=== PATIENT | male | born 1965 | race American Indian/Alaskan Native ===

== ENCOUNTER 2016-10-29 20:00 | Emergency (ER) | payer SELFPAY ==
[2016-10-29 22:06] LABS: Basophils % (Auto) 1.5 % (0.0-1.8); Eosinophils % (Auto) 2.3 % (0.0-4.3); Hematocrit 38.5 % (35.5-45.6); Hemoglobin 12.8 gm/dl (11.8-15.2); Mean Corpuscular HGB Conc 33 % (32-34); Mean Corpuscular Hemoglobin 27 pg (28-32); Mean Corpuscular Volume 82 fl (84-94); Platelet Count 320 K/mm3 (140-440); Red Cell Distribution Width 15.7 % (13.2-15.2); White Blood Count 6.3 K/mm3 (4.5-11.0)
[2016-10-29 22:16] LABS: Anion Gap 15 mmol/L; BUN/Creatinine Ratio 14.28; Blood Urea Nitrogen 10 mg/dL (9-20); Calcium 8.5 mg/dL (8.4-10.2); Carbon Dioxide 26 mmol/L (22-30); Chloride 103.5 mmol/L (98-107); Glucose 94 mg/dL (75-100); Potassium 3.9 mmol/L (3.6-5.0); Sodium 141 mmol/L (137-145)
[2016-10-29 22:31] LABS: INR 0.98 (0.87-1.13)
[2016-10-29 22:32] LABS: Partial Thromboplastin Time 29.6 Sec. (24.2-36.6)
--- NOTE | 2016-10-30 00:27 | Emergency Department Report ---
ED General Adult HPI - General Chief complaint: Urogenital-Male Stated complaint: LEG SWELLING Time Seen by Provider: 10/30/16 00:12 Source: patient Mode of arrival: Ambulatory Limitations: No Limitations - History of Present Illness Initial comments: This is a 51-year-old male. He is previously unknown to me. His primary care doctor is Dr. Mistry. The patient presents to the ER complaining of bilateral lower extremity swelling. Patient reports that his legs have been swelling intermittently for the past 6 weeks. He reports that the swelling decreases when he lays flat, and increases when sitting up. There is no chest pain, shortness of breath or abdominal pain. He denies unintentional weight gain. He reports that he now has intermittent testicular swelling for the past week. He is able to urinate but it is difficult. There is no hematemesis, bright red blood per rectum, irritative urinary symptoms. -: Gradual Location: genitals, left, right, lower extremity Radiation: non-radiation Consistency: intermittent Improves with: other (symptoms improved when the patient is sleeping and laying supine.) Worsens with: other (they worsen when the patient is standing upright) Associated Symptoms: denies: shortness of breath - Related Data Previous Rx's Medication Instructions Recorded Last Taken Type Furosemide [Lasix] 20 mg PO QDAY #14 tablet 10/30/16 Unknown Rx Allergies Allergy/AdvReac Type Severity Reaction Status Date / Time No Known Allergies Allergy Unverified 10/29/16 21:24 ED Review of Systems ROS: Stated complaint: LEG SWELLING Other details as noted in HPI Constitutional: denies: fever, malaise Eyes: denies: vision change ENT: denies: epistaxis Respiratory: denies: shortness of breath Cardiovascular: edema. denies: chest pain Gastrointestinal: denies: abdominal pain Genitourinary: denies: dysuria, testicular pain Musculoskeletal: joint swelling Skin: denies: lesions Neurological: denies: weakness Psychiatric: denies: anxiety ED Past Medical Hx - Past Medical History Previous Medical History?: No - Surgical History Past Surgical History?: No - Social History Smoking Status: Never Smoker Substance Use Type: Alcohol - Medications Home Medications: Home Medications Medication Instructions Recorded Confirmed Last Taken Type Furosemide [Lasix] 20 mg PO QDAY #14 tablet 10/30/16 Unknown Rx ED Physical Exam - General Limitations: No Limitations General appearance: alert, in no apparent distress - Head Head exam: Present: atraumatic, normocephalic - Eye Eye exam: Present: normal appearance, EOMI. Absent: nystagmus - ENT ENT exam: Present: normal exam, normal orophraynx, mucous membranes moist, normal external ear exam - Neck Neck exam: Present: normal inspection, full ROM. Absent: tenderness, meningismus - Respiratory Respiratory exam: Present: normal lung sounds bilaterally. Absent: respiratory distress, wheezes, rales, rhonchi, stridor, chest wall tenderness, accessory muscle use, decreased breath sounds, prolonged expiratory - Cardiovascular Cardiovascular Exam: Present: regular rate, normal rhythm, normal heart sounds. Absent: bradycardia, tachycardia, irregular rhythm, systolic murmur, diastolic murmur, rubs, gallop - GI/Abdominal GI/Abdominal exam: Present: soft, normal bowel sounds. Absent: distended, tenderness, guarding, rebound, rigid, pulsatile mass - Rectal Rectal exam: Present: deferred - exam: Present: scrotal swelling, other (there is no testicular tenderness. There is normal testicular lie) - Extremities Exam Extremities exam: Present: normal inspection, pedal edema (there is 3+ pitting edema in the bilateral lower extremities. There is no redness, pus or streaking. There is no palpable cord.). Absent: calf tenderness - Back Exam Back exam: Present: normal inspection, full ROM. Absent: CVA tenderness (L), muscle spasm, paraspinal tenderness, vertebral tenderness - Neurological Exam Neurological exam: Present: alert, oriented X3, normal gait, other (Extraocular movements intact. Tongue midline. No facial droop. Facial sensation intact to light touch in the V1, V2, V3 distribution bilaterally. 5 and 5 strength in 4 extremities.. Sensation is intact to light touch in 4 extremities.). Absent : motor sensory deficit - Psychiatric Psychiatric exam: Present: normal affect, normal mood - Skin Skin exam: Present: warm, dry, intact, normal color. Absent: rash ED Course Vital Signs 10/29/16 10/30/16 10/30/16 21:24 04:25 04:39 Temperature 98.1 F 98.0 F Pulse Rate 93 H 89 Respiratory 18 18 20 Rate Blood Pressure 139/89 Blood Pressure 144/96 [Left] O2 Sat by Pulse 97 95 Oximetry - Reevaluation(s) Reevaluation #1: 10/30/16 02:10 Differential diagnosis: Lymphedema, venous insufficiency, iliac vein thrombosis , IVC thrombosis Assessment and plan: 51-year-old male with 6 weeks of intermittent bilateral lower extremity edema, with no chest pain, shortness of breath, dyspnea. There are no pulmonary embolus or DVT risk factors, and he is low risk by well's criteria. Most likely has lymphedema. He is currently resting comfortably on a stretcher, saturating well, reading on his laptop computer. Patient is ambulatory, clinical exam not consistent with cellulitis. CT scan of the abdomen and pelvis is ordered to exclude partially obstructing intra- abdominal/pelvic process. If CT scan is negative, we'll start patient on Lasix , obtain outpatient duplex study, and referred to outpatient vascular surgery. Patient presented after hours, vascular lab not well at this time. 10/30/16 02:12 Elevated BNP is appreciated, however the patient is not having chest pain or shortness of breath and is not hypoxic. His chest x-ray is also not consistent with congestive heart failure. Given that this has been going on and off for 6 weeks, I think acute congestive heart failure is not very likely. Reevaluation #2: 10/30/16 02:13 abnormal EKG appreciated. No chest pain, no shortness of breath , symptoms present for month and a half. Low risk by MALORIE score, low risk by heart score, patient can follow up with outpatient cardiology for his abnormal EKG. Reevaluation #3: 10/30/16 04:21 CT scan demonstrates ascites, pleural effusions, no obstructive lesions. Patient sitting comfortably without chest pain or shortness of breath. Vital signs remained stable. He is not orthopneic. Extensive discussion had with patient and . Given that symptoms have been going on for 6 weeks, and given that he does not have chest pain or shortness of breath, I think it would be reasonable to initiate diuretics, and have him follow up with outpatient cardiology. I did offer the patient admission to the hospital for expedited workup, although given his stable vital signs, lack of chest pain and shortness of breath, I feel the patient will be suitable for outpatient evaluation and management given 6 weeks of symptoms. Through shared decision making, the patient and his both agree that they prefer to follow up with cardiology as an outpatient. Farihavin CT scan findings and physical exam findings as well as laboratory studies, I believe the patient will benefit from outpatient cardiology follow-up. He will be started on Lasix , discharged with Lasix, and instructed to follow up with outpatient cardiology. Return precautions are reviewed. ED Medical Decision Making - Lab Data Result diagrams: 10/29/16 21:43 10/29/16 21:43 Vital Signs 10/29/16 21:24 Temperature 98.1 F Pulse Rate 93 H Respiratory 18 Rate Blood Pressure 139/89 O2 Sat by Pulse 97 Oximetry Lab Results 10/29/16 10/29/16 10/29/16 Range/Units 21:43 21:43 22:01 WBC 6.3 (4.5-11.0) K/mm3 RBC 4.70 (3.65-5.03) M/mm3 Hgb 12.8 (11.8-15.2) gm/dl Hct 38.5 (35.5-45.6) % MCV 82 L (84-94) fl MCH 27 L (28-32) pg MCHC 33 (32-34) % RDW 15.7 H (13.2-15.2) % Plt Count 320 (140-440) K/mm3 Lymph % (Auto) 25.7 (13.4-35.0) % [place] % (Auto) 10.0 H (0.0-7.3) % Eos % (Auto) 2.3 (0.0-4.3) % Baso % (Auto) 1.5 (0.0-1.8) % Lymph # 1.6 (1.2-5.4) K/mm3 [place] # 0.6 (0.0-0.8) K/mm3 Eos # 0.1 (0.0-0.4) K/mm3 Baso # 0.1 (0.0-0.1) K/mm3 Seg Neutrophils % 60.5 (40.0-70.0) % Seg Neutrophils # 3.8 (1.8-7.7) K/mm3 PT (12.2-14.9) Sec. INR (0.87-1.13) APTT (24.2-36.6) Sec. Sodium 141 (137-145) mmol/L Potassium 3.9 (3.6-5.0) mmol/L Chloride 103.5 (98-107) mmol/L Carbon Dioxide 26 (22-30) mmol/L Anion Gap 15 mmol/L BUN 10 (9-20) mg/dL Creatinine 0.7 L (0.8-1.5) mg/dL Estimated GFR > 60 ml/min BUN/Creatinine Ratio 14.28 % Glucose 94 (75-100) mg/dL Calcium 8.5 (8.4-10.2) mg/dL Troponin T < 0.010 (0.00-0.029) ng/mL NT-Pro-B Natriuret Pep 1970 H (0-900) pg/mL 10/29/16 Range/Units 22:01 WBC (4.5-11.0) K/mm3 RBC (3.65-5.03) M/mm3 Hgb (11.8-15.2) gm/dl Hct (35.5-45.6) % MCV (84-94) fl MCH (28-32) pg MCHC (32-34) % RDW (13.2-15.2) % Plt Count (140-440) K/mm3 Lymph % (Auto) (13.4-35.0) % [place] % (Auto) (0.0-7.3) % Eos % (Auto) (0.0-4.3) % Baso % (Auto) (0.0-1.8) % Lymph # (1.2-5.4) K/mm3 [place] # (0.0-0.8) K/mm3 Eos # (0.0-0.4) K/mm3 Baso # (0.0-0.1) K/mm3 Seg Neutrophils % (40.0-70.0) % Seg Neutrophils # (1.8-7.7) K/mm3 PT 13.5 (12.2-14.9) Sec. INR 0.98 (0.87-1.13) APTT 29.6 (24.2-36.6) Sec. Sodium (137-145) mmol/L Potassium (3.6-5.0) mmol/L Chloride (98-107) mmol/L Carbon Dioxide (22-30) mmol/L Anion Gap mmol/L BUN (9-20) mg/dL Creatinine (0.8-1.5) mg/dL Estimated GFR ml/min BUN/Creatinine Ratio % Glucose (75-100) mg/dL Calcium (8.4-10.2) mg/dL Troponin T (0.00-0.029) ng/mL NT-Pro-B Natriuret Pep (0-900) pg/mL - EKG Data -: EKG Interpreted by Me - EKG Data Normal sinus, 88 bpm, low voltage in the inferior leads, poor R-wave progression , T-wave inversions in the lateral leads, abnormal EKG, not morphologically consistent with STEMI. EKG #2 demonstrates sinus, 86 bpm, normal axis, QTC 464 ms, poor R progression, T-wave abnormality, morphologically consistent with STEMI. 10/30/16 02:13 - Radiology Data Radiology results: image reviewed interpreted by me: X-ray of the chest is negative for acute disease Critical care attestation.: If time is entered above; I have spent that time in minutes in the direct care of this critically ill patient, excluding procedure time. ED Disposition Clinical Impression: Edema Disposition: DC- TO HOME OR SELFCARE Is pt being admited?: No Does the pt Need Aspirin: No Condition: Good Instructions: Heart Failure (ED), Leg Edema (ED) Additional Instructions: Follow up with either of the listed knockdown man within the next 3-5 days. Take the water pill, Lasix as directed. Contacts the ultrasound department with the outpatient ultrasound with requisition form, to follow up for outpatient ultrasound of the lower extremities. Return to the ER right away with fevers, chills, chest pain, shortness of breath, intractable nausea and vomiting, confusion, inability to tolerate liquid feeds, inability to urinate. Prescriptions: Furosemide [Lasix] 20 mg PO QDAY #14 tablet Referrals: DR SUNG [Other] - 3-5 Days TARYN LAURA MD [Staff Physician] - 3-5 Days MARY PENA MD [Staff Physician] - 3-5 Days Forms: Work/School Release Form(ED)
--- NOTE | 2016-10-30 03:41 | Cat Scan Report ---
FINAL REPORT PROCEDURE: CT ABDOMEN PELVIS W CON TECHNIQUE: Computerized axial tomography of the abdomen and pelvis was performed after the IV injection of iodinated nonionic contrast. HISTORY: abd/scrotal swelling COMPARISON: No prior studies are available for comparison. FINDINGS: Visualized lower thorax: There are moderate bilateral pleural effusions. There is atelectasis at the lung bases.. Liver: Normal size and attenuation. There is a 9 millimeters cyst in the right lobe of the liver. Spleen: Normal size and attenuation. Gallbladder and biliary system: Normal. Pancreas: Normal. Adrenals: Normal. Kidneys: There are no kidney stones or ureteral stones. There is no hydronephrosis.. GI tract: There is no bowel obstruction, colitis or enteritis. The appendix is normal.. Lymph nodes and mesentery: Normal. Vasculature: Normal. Bladder: Normal. Reproductive organs: Normal. Peritoneum: There is moderate ascites. There is no free air. There is no abscess or adenopathy.. Musculoskeletal structures: No significant abnormality. Other: There is generalized subcutaneous edema which could be due to heart failure or fluid volume overload.. IMPRESSION: There are moderate bilateral pleural effusions. There is atelectasis at the lung bases.. There are no kidney stones or ureteral stones. There is no hydronephrosis.. There is no bowel obstruction, colitis or enteritis. The appendix is normal.. There is moderate ascites. There is no free air. There is no abscess or adenopathy.
[2016-10-30] MEDS ORDERED: LASIX IV ONE (04:20)
[2016-10-30 04:25] VITALS: BP 144/96
--- NOTE | 2016-10-30 09:46 | XRay Report ---
Chest 2 views. History: Dyspnea. Findings: The heart and pulmonary vessels are normal. There are small bilateral pleural effusions. Minimal linear atelectasis is seen in the left lung base with no other focal pulmonary abnormalities. Impression: Small bilateral pleural effusions.
== END 2016-10-30 05:17 | disposition home or self-care (01) ==
LOC: ED 20:00
DX: R60.9 Edema, unspecified (principal); R30.0 Dysuria
CPT/HCPCS: 36415; 71020; 74177; 80048; 83880; 84484; 85025; 85610; 85730; 93005; 93010; 96374; 99285; J1940; Q9967

== ENCOUNTER 2016-10-30 14:05 | Outpatient (CLI) | payer SELFPAY ==
--- NOTE | 2016-10-31 10:08 | Vascular Lab Report ---
LOWER EXTREMITY VENOUS DUPLEX: REASON FOR EXAM: Swelling of the lower extremities. COMMENTS ON THE RIGHT: All veins visualized are freely compressible without evidence of internal echogenicity. Flow is spontaneous and phasic throughout. COMMENTS ON THE LEFT: All veins visualized are freely compressible without evidence of internal echogenicity. Flow is spontaneous and phasic throughout. IMPRESSION: No evidence of acute or chronic deep venous thrombosis in either lower extremity.
== END 2016-10-30 14:06 | disposition home or self-care (01) ==
LOC: VAS 14:05
PROVIDERS: ATTEND Emergency Medicine
DX: M79.89 Other specified soft tissue disorders (principal)
CPT/HCPCS: 93970